=== PATIENT | male | born 2000 | race Caucasian/White ===

== ENCOUNTER 2022-08-07 14:23 | Emergency (ER) | payer OTHER ==
[~2022-08-07] VITALS: Ht 182.9 cm; Wt 77.1 kg
--- NOTE | 2022-08-07 15:20 | NUR ---
BIBS FOR NAUSEA AND VOMITING FOR 2 DAYS. A/O X 3, ABLE TO MAKE NEEDS KNOWN, TOLERATING WELL ON ROOM AIR.
--- NOTE | 2022-08-07 15:48 | NUR ---
BLOOD SAMPLES OBTAINED
[2022-08-07] MEDS ORDERED: IV NS 0.9% 1,000 ML BAG IV ONE (16:00)
[2022-08-07] MEDS ORDERED: ONDANSETRON HCL/PF 4 MG/2 ML VIAL IVP ONE (16:00)
[2022-08-07 16:19] LABS: BASOPHILS % (AUTO) 0.2 % (0.0-2.0); EOSINOPHILS % (AUTO) 0.2 % (0.0-6.0); HEMATOCRIT 45 % (39-51); HEMOGLOBIN 14.8 g/dL (13.5-17.5); LYMPHOCYTES # (AUTO) 1.1 K/uL (0.8-4.8); LYMPHOCYTES % (AUTO) 9.1 % (20.0-44.0); MEAN CORPUSCULAR HGB CONC 33 g/dl (31.0-36.0); MEAN CORPUSCULAR VOLUME 88 fL (80-96); MONOCYTES # (AUTO) 0.8 K/uL (0.1-1.30); MONOCYTES % (AUTO) 6.5 % (2.0-12.0); NEUTROPHILS # (AUTO) 10.6 K/uL (1.8-8.9); PLATELET COUNT (AUTO) 318 K/uL (150-450); RED BLOOD CELL COUNT(AUTO) 5.14 MIL/uL (4.5-6.0); WHITE BLOOD COUNT (AUTO) 12.6 K/uL (4.3-11.0)
[2022-08-07] MEDS ORDERED: ONDANSETRON HCL/PF 4 MG/2 ML VIAL ONE (16:29)
[2022-08-07 16:30] LABS: CALCIUM, SERUM 10.1 mg/dL (8.5-10.1); CREATININE 0.9 mg/dL (0.6-1.3)
[2022-08-07 16:37] LABS: ALBUMIN 4.5 g/dL (3.4-5.0); BILIRUBIN,DIRECT 0.3 mg/dL (0.0-0.2); BILIRUBIN,TOTAL 1.2 mg/dL (0.2-1.0); TOTAL PROTEIN, SERUM 8.3 g/dL (6.4-8.2)
--- NOTE | 2022-08-07 17:34 | NUR ---
NORMAL SALINE STARTED AT 1634, COMPLETED AT 1734
[2022-08-07] MEDS ORDERED: ONDA4TAB5 PO (18:37)
[2022-08-07 19:00] VITALS: BP 134/79
--- NOTE | 2022-08-07 19:00 | NUR ---
IV removed. Catheter intact and site benign. Pressure and 4x4 applied to site. No bleeding noted.Patient discharged to home in stable condition. Written and verbal after care instructions given. Patient verbalizes understanding of instruction.
== END 2022-08-07 19:01 | disposition home or self-care (01) ==
LOC: ER 14:26
DX: R11.2 Nausea with vomiting, unspecified (principal); Z79.899 Other long term (current) drug therapy
CPT/HCPCS: 99285; 96374; 76705; 96361; 85025; 80048; 83690; 80076; 83735; 36415; J2405; J7030

== ENCOUNTER 2022-08-30 14:43 | Inpatient (IN) | payer OTHER ==
[~2022-08-30] VITALS: Ht 182.9 cm; Wt 73.5 kg
[~2022-08-30 14:43] MED LIST: ONDA4TAB5 PO
[2022-08-30 15:22] LABS: BILIRUBIN,URINE 2+ (NEGATIVE); COLOR,URINE AMBER (YELLOW); LEUKOCYTE ESTERASE ,URINE NEGATIVE (NEGATIVE); NITRITE, URINE POSITIVE (NEGATIVE); PH,URINE 6.5 (5.0-8.0); PROTEIN,URINE 3+ mg/dl (NEGATIVE); UGLUCOSE NEGATIVE (NEGATIVE)
[2022-08-30 15:26] LABS: BASOPHILS % (AUTO) 0.3 % (0.0-2.0); EOSINOPHILS % (AUTO) 0.2 % (0.0-6.0); HEMATOCRIT 47 % (39-51); HEMOGLOBIN 15.4 g/dL (13.5-17.5); LYMPHOCYTES # (AUTO) 1.3 K/uL (0.8-4.8); LYMPHOCYTES % (AUTO) 13.5 % (20.0-44.0); MEAN CORPUSCULAR HGB CONC 33 g/dl (31.0-36.0); MEAN CORPUSCULAR VOLUME 87 fL (80-96); MONOCYTES # (AUTO) 0.5 K/uL (0.1-1.30); MONOCYTES % (AUTO) 5.1 % (2.0-12.0); NEUTROPHILS # (AUTO) 7.6 K/uL (1.8-8.9); NEUTROPHILS % (AUTO) 80.9 % (43.0-81.0); PLATELET COUNT (AUTO) 310 K/uL (150-450); RED BLOOD CELL COUNT(AUTO) 5.39 MIL/uL (4.5-6.0); WHITE BLOOD COUNT (AUTO) 9.4 K/uL (4.3-11.0)
[2022-08-30] MEDS ORDERED: ONDANSETRON HCL/PF - ER 4 MG/2 ML VIAL IV ONE ×2 (15:30→16:30)
[2022-08-30] MEDS ORDERED: IV NS 0.9% 1,000 ML IV ONE ×2 (15:30→19:30)
[2022-08-30] MEDS ORDERED: ONDANSETRON HCL/PF 4 MG/2 ML VIAL ONE ×2 (15:46→16:27)
[2022-08-30 15:48] LABS: ALBUMIN 4.4 g/dL (3.4-5.0); BILIRUBIN,DIRECT 0.3 mg/dL (0.0-0.2); BILIRUBIN,TOTAL 2.1 mg/dL (0.2-1.0); CALCIUM, SERUM 9.7 mg/dL (8.5-10.1); CREATININE 1.1 mg/dL (0.6-1.3); POTASSIUM 4.5 mmol/L (3.5-5.1); TOTAL PROTEIN, SERUM 8.2 g/dL (6.4-8.2)
[2022-08-30 15:52] LABS: BACTERIA,URINE 1+ /HPF (None Seen); FINE GRANULAR CASTS,URINE Moderate /LPF (None Seen); HYALINE CASTS, URINE Few /LPF (None Seen); SQUAMOUS EPITHELIAL CELL,UR None Seen /HPF (None Seen)
--- NOTE | 2022-08-30 15:52 | NUR ---
PT IN BED 6, A/OX 4 NO S/S OF DISTRESS OF ANYKIND. VITAL WNL. C/O: PAIN IN THE LEGS CURRENTLY 7/10 CAN GET UP TO 10/10. PT STATES DARK/ RED TINGED URINE. NO PAIN FROM FLANK OR BACK. Hx OF RABDOMYOLYSIS
[2022-08-30 15:53] LABS: MUCUS,URINE Moderate /LPF (None Seen)
[2022-08-30] MEDS ORDERED: KETOROLAC TROMETHAMINE 15 MG/ML VIAL ONE (16:27)
[2022-08-30] MEDS ORDERED: KETOROLAC TROMETHAMINE INJ 30 MG/ML VIAL IV ONE (16:30)
--- NOTE | 2022-08-30 17:45 | NUR ---
ROOM 113-1
--- NOTE | 2022-08-30 17:55 | NUR ---
Handoff report given to radha frederick.
--- NOTE | 2022-08-30 19:21 | NUR ---
rn note gave report to Bertha SUH for contuity of care
[2022-08-30] MEDS ORDERED: Z GUARD REMEDY 4 OZ OINT TP PRN (19:30)
[2022-08-30] MEDS ORDERED: ONDANSETRON HCL/PF 4 MG/2 ML VIAL IVP PRN (19:30)
[2022-08-30 19:40] VITALS: BP 124/74
--- NOTE | 2022-08-30 20:50 | NUR ---
MS general operations agent Note Admitted this patient from ED with ER staff via mj @ [id number] with diagnosis of rhabdomyolysis. Patient is awake, alert and oriented x 4. Patient is ambulatory. On room air; tolerating well. Breathing even and nonlabored. Not in any form of respiratory or cardiac distress. Denies any pain or discomfort. VS as follows: T 98.2, HR 94, RR 20, O2 Sat 98%, BP 124/74 mm hg. Able to make needs known. With IV access on right antecubital 20g; patent, intact and saline locked. Oriented to staff, room and unit. Body and skin assessment done; skin is warm to touch and intact. Fall and safety precautions initiated: call light and table within reach, side rails up x 2, bed in lowest locked position. Will continue to monitor throughout shift.
[2022-08-30] MEDS: HYDROCODONE/APAP 10/325MG TABLET PO PRN (23:33)
--- NOTE | 2022-08-30 23:33 | NUR ---
RN Note Patient complained of bilateral leg pain with 7/10 pain scale. PRN Ferguson 10/325 mg 1 tab given po as ordered. Kept comfortable in bed. Will continue to monitor and reassess patient.
[2022-08-31 04:00] VITALS: BP 116/60
[2022-08-31 05:51] LABS: BASOPHILS % (AUTO) 0.4 % (0.0-2.0); EOSINOPHILS % (AUTO) 3.4 % (0.0-6.0); HEMATOCRIT 42 % (39-51); HEMOGLOBIN 13.9 g/dL (13.5-17.5); LYMPHOCYTES # (AUTO) 2.7 K/uL (0.8-4.8); LYMPHOCYTES % (AUTO) 45.3 % (20.0-44.0); MEAN CORPUSCULAR HGB CONC 33 g/dl (31.0-36.0); MEAN CORPUSCULAR VOLUME 87 fL (80-96); MONOCYTES # (AUTO) 0.6 K/uL (0.1-1.30); MONOCYTES % (AUTO) 10.1 % (2.0-12.0); NEUTROPHILS # (AUTO) 2.4 K/uL (1.8-8.9); NEUTROPHILS % (AUTO) 40.8 % (43.0-81.0); PLATELET COUNT (AUTO) 262 K/uL (150-450); RED BLOOD CELL COUNT(AUTO) 4.85 MIL/uL (4.5-6.0)
[2022-08-31 06:18] LABS: ALBUMIN 3.4 g/dL (3.4-5.0); BILIRUBIN,TOTAL 1.5 mg/dL (0.2-1.0); CREATININE 0.9 mg/dL (0.6-1.3); MAGNESIUM 2.1 mg/dL (1.8-2.4); PHOSPHORUS 4.9 mg/dL (2.5-4.9); POTASSIUM 4.3 mmol/L (3.5-5.1); TOTAL PROTEIN, SERUM 6.5 g/dL (6.4-8.2)
--- NOTE | 2022-08-31 06:43 | NUR ---
MS RN Closing Note Patient in bed; awake, a/o x 4. Stable on room air. In no acute distress. No c/o pain or discomfort. With IV access on right antecubital 20g; patent, intact and saline locked. Due meds given as indicated. All needs met. Fall and safety precautions maintained. Endorsed to morning shift for continuity of care.
--- NOTE | 2022-08-31 07:15 | NUR ---
MS RN OPENING NOTE: RECEIVED PT IN BED AOX4. ABLE TO MAKE NEEDS KNOWN. ON RA. NO RESP DISTRESS NOTED. DENIES PAIN OR DISCOMFORT. PT WITH LAC 20G. PATENT AND INTACT. BED AT LOW AND LOCK POSITION FOR SAFETY. GIRLFRIEND AT BEDSIDE.
--- NOTE | 2022-08-31 08:45 | NUR ---
MS RN NOTE: RUBÉN MACKENZIE RD PROJECT MANAGER AT BEDSIDE
[2022-08-31] MEDS: LEVOCARNITINE 330 MG TABLET PO SCH (08:53)
[2022-08-31] MEDS ORDERED: IV NS 0.9% 1,000 ML IV ONE ×2 (09:00→10:30)
[2022-08-31] MEDS ORDERED: IV NS 0.9% 1,000 ML IV SCH (10:30)
[2022-08-31] MEDS: IV NS 0.9% 1,000 ML IV SCH ×4 (10:58→21:43)
[2022-08-31] MEDS: HYDROCODONE/APAP 10/325MG TABLET PO PRN (17:43)
--- NOTE | 2022-08-31 18:20 | NUR ---
MS RN CLOSING NOTE: PT IN BED AOX4. ABLE TO MAKE NEEDS KNOWN. ON RA. NO RESP DISTRESS NOTED. DENIES PAIN OR DISCOMFORT. PT WITH LAC 20G. ON IV NS AT 250ML/HR. PATENT AND INTACT. BED AT LOW AND LOCK POSITION FOR SAFETY. MOM AT BEDSIDE.
--- NOTE | 2022-08-31 19:30 | NUR ---
MS RN OPENING NOTE RECEIVED PATIENT IN BED, WITH HOB ELEVATED, ALERT AND ORIENTED X 4, WITH FAMILY MEMBER AT BEDSIDE. ABLE TO MAKE NEEDS KNOWN. AFEBRILE AND NOT IN ANY FORM OF ACUTE DISTRESS. BREATHING EVEN AND NON LABORED. WITH IV ACCESS ON LAC 20G RUNNING WITH NS AT 250ML/HR. SAFETY MEASURES IN PLACE. KEPT BED IN LOCKED AND IN LOW POSITION. SIDE RAILS UP X2. ADVISED TO USE THE CALL LIGHT WHEN IN NEED OF ASSISTANCE.
[2022-09-01] MEDS: IV NS 0.9% 1,000 ML IV SCH ×3 (01:44→09:47)
--- NOTE | 2022-09-01 06:23 | NUR ---
MS RN CLOSING NOTE PATIENT IN BED, SLEEPING. ALERT AND ORIENTED X4. ABLE TO MAKE NEEDS KNOWN. AFEBRILE AND NOT IN ANY FORM OF ACUTE DISTRESS. BREATHING EVEN AND NON LABORED. DENIES ANY PAIN OR DISCOMFORT THROUGHOUT THE SHIFT. WITH IV ACCESS ON LAC 20G RUNNING WITH NS AT 250ML/HR. MEDICATED ORDERED. SAFETY MEASURES IN PLACE. KEPT BED IN LOCKED AND IN LOW POSITION. SIDE RAILS UP X2. ADVISED TO USE THE CALL LIGHT WHEN IN NEED OF ASSISTANCE. ALL NURSING NEEDS ATTENDED. ENDORSED TO INCOMING SHIFT FOR CONTINUITY OF CARE.
[2022-09-01 06:26] LABS: BASOPHILS % (AUTO) 0.6 % (0.0-2.0); HEMATOCRIT 38 % (39-51); HEMOGLOBIN 12.9 g/dL (13.5-17.5); LYMPHOCYTES # (AUTO) 2.3 K/uL (0.8-4.8); LYMPHOCYTES % (AUTO) 38.5 % (20.0-44.0); MEAN CORPUSCULAR HGB CONC 34 g/dl (31.0-36.0); MEAN CORPUSCULAR VOLUME 86 fL (80-96); MONOCYTES # (AUTO) 0.7 K/uL (0.1-1.30); MONOCYTES % (AUTO) 11.7 % (2.0-12.0); NEUTROPHILS # (AUTO) 2.6 K/uL (1.8-8.9); NEUTROPHILS % (AUTO) 44.2 % (43.0-81.0); PLATELET COUNT (AUTO) 223 K/uL (150-450); RED BLOOD CELL COUNT(AUTO) 4.43 MIL/uL (4.5-6.0)
[2022-09-01 06:59] LABS: CALCIUM, SERUM 8.7 mg/dL (8.5-10.1); CREATININE 0.6 mg/dL (0.6-1.3); MAGNESIUM 1.7 mg/dL (1.8-2.4); PHOSPHORUS 3.8 mg/dL (2.5-4.9); POTASSIUM 4.1 mmol/L (3.5-5.1)
--- NOTE | 2022-09-01 07:10 | NUR ---
MS RN OPENING NOTE: RECEIVED PT IN BED SLEEPING. EASILY AROUSABLE TO VERBAL AND TACTILE STIMULI. NO S/S OF PAIN OR DISCOMFORT. ON RA WITH NO RESP DISTRESS NOTED. ON NS AT 250ML/HR TO LAC 20G. PATENT AND INTACT. CALL LIGHT WITHIN REACH. ABLE TO AMBULATE. BED KEPT LOW AND LOCK POSITION FOR SAFETY.
[2022-09-01] MEDS: LEVOCARNITINE 330 MG TABLET PO SCH (08:31)
[2022-09-01] MEDS: MAGNESIUM OXIDE 400 MG TABLET PO ONE ×2 (09:48→09:51)
[2022-09-01 12:07] LABS: *ANA ANTI-CENTROMERE B AB <0.2 AI (0.0-0.9); *ANA ANTI-DNA(DS) AB, QN <1 IU/mL (0-9); *ANA ANTI-JO-1 <0.2 AI (0.0-0.9); *ANA ANTICHROMATIN ANTIBODY <0.2 AI (0.0-0.9); *ANA RNP ANTIBODIES <0.2 AI (0.0-0.9); *ANA SJOGREN'S ANTI-SS-A <0.2 AI (0.0-0.9); *ANA SJOGREN'S ANTI-SS-B <0.2 AI (0.0-0.9); *ANAANTI-SCLERODERMA-70 AB <0.2 AI (0.0-0.9); *ANASMITH AB <0.2 AI (0.0-0.9)
[2022-09-01] MEDS ORDERED: IV NS 0.9% 1,000 ML IV PRN (15:00)
[2022-09-01] MEDS: HYDROCODONE/APAP 10/325MG TABLET PO PRN (15:57)
--- NOTE | 2022-09-01 18:10 | NUR ---
MS RN CLOSING NOTE: RECEIVED PATIENT IN BED, WITH HOB ELEVATED, ALERT AND ORIENTED X 4, WITH GIRLFRIEND AT BED SIDE. ABLE TO MAKE NEEDS KNOWN. AFEBRILE AND NOT IN ANY FORM OF ACUTE DISTRESS. BREATHING EVEN AND NON LABORED. WITH IV ACCESS ON RAC 20G RUNNING WITH NS AT 75ML/HR. SAFETY MEASURES IN PLACE. KEPT BED IN LOCKED AND IN LOW POSITION. SIDE RAILS UP X2. CALL LIGHT WITHIN REACH.
--- NOTE | 2022-09-01 19:30 | NUR ---
SILK SCREEN PRINTING RACKER OPENING NOTE RECEIVED PATIENT IN BED, WITH HOB ELEVATED, ALERT AND ORIENTED X 4, WITH FAMILY MEMBER AT BEDSIDE. ABLE TO MAKE NEEDS KNOWN. AFEBRILE AND NOT IN ANY FORM OF ACUTE DISTRESS. BREATHING EVEN AND NON LABORED. WITH IV ACCESS ON LAC 20G RUNNING WITH NS AT 250ML/HR. SAFETY MEASURES IN PLACE. KEPT BED IN LOCKED AND IN LOW POSITION. SIDE RAILS UP X2. ADVISED TO USE THE CALL LIGHT WHEN IN NEED OF ASSISTANCE, WILL CONTINUE TO MONITOR
--- NOTE | 2022-09-02 06:01 | NUR ---
COMPENSATION/BENEFITS SPECIALIST closing note Pt resting in bed, asleep, A&Ox4, able to make needs known, breathing even and unlabored, on RA, skin warm and dry to touch, declined any pain, RAC 20G C/D/I, NS 75cc/ hr infusing well, pt is independent with bed mobility, all due meds given per MD orders, all basic needs met and anticipated, safety measures in place, call light with in reach
[2022-09-02 06:57] LABS: BASOPHILS % (AUTO) 0.5 % (0.0-2.0); HEMATOCRIT 40 % (39-51); HEMOGLOBIN 13.1 g/dL (13.5-17.5); LYMPHOCYTES % (AUTO) 37.5 % (20.0-44.0); MEAN CORPUSCULAR HGB CONC 33 g/dl (31.0-36.0); MEAN CORPUSCULAR VOLUME 87 fL (80-96); MONOCYTES # (AUTO) 0.6 K/uL (0.1-1.30); MONOCYTES % (AUTO) 10.9 % (2.0-12.0); NEUTROPHILS # (AUTO) 2.4 K/uL (1.8-8.9); NEUTROPHILS % (AUTO) 45.1 % (43.0-81.0); PLATELET COUNT (AUTO) 243 K/uL (150-450); RED BLOOD CELL COUNT(AUTO) 4.58 MIL/uL (4.5-6.0); WHITE BLOOD COUNT (AUTO) 5.2 K/uL (4.3-11.0)
[2022-09-02 07:04] LABS: CREATININE 0.6 mg/dL (0.6-1.3); MAGNESIUM 1.9 mg/dL (1.8-2.4); PHOSPHORUS 4.6 mg/dL (2.5-4.9); POTASSIUM 4.2 mmol/L (3.5-5.1)
--- NOTE | 2022-09-02 07:30 | NUR ---
OPENING NOTE RECEIVED PATIENT IN BED, WITH HOB ELEVATED, ALERT AND ORIENTED X 4. ABLE TO MAKE NEEDS KNOWN. AFEBRILE AND NOT IN ANY FORM OF ACUTE DISTRESS. BREATHING EVEN AND NON LABORED. SAFETY MEASURES IN PLACE. KEPT BED IN LOCKED AND IN LOW POSITION. SIDE RAILS UP X2. ADVISED TO USE THE CALL LIGHT WHEN IN NEED OF ASSISTANCE, WILL CONTINUE TO MONITOR
[2022-09-02 08:00] VITALS: BP 117/69
[2022-09-02] MEDS: LEVOCARNITINE 330 MG TABLET PO SCH (08:25)
--- NOTE | 2022-09-02 11:15 | NUR ---
PATIENT DISCHARGE HOME IN STABLE CONDITION. GIRLFRIEND STOCK CAR DRIVER THE PATIENT. DISCHARGED PLAN GIVEN TO THE PATIENT.
== END 2022-09-02 12:48 | disposition home or self-care (01) | DRG 346 ==
LOC: ER 14:44 → TELE1 18:54 → MEDSG1 21:49
PROVIDERS: ADMIT Nurse Practitioner Acute Care; ATTEND Nurse Practitioner Acute Care
DX: M33.22 Polymyositis with myopathy (principal); E80.6 Other disorders of bilirubin metabolism
CPT/HCPCS: 36415; 80048-TC; 80053-TC; 80061-TC; 80076-TC; 81001; 82085; 82550-TC; 82553; 83540-TC; 83690-TC; 83735-TC; 84100-TC; 85025-TC; 85652-TC; 86140-TC; 86225; 86235; 87081-TC; 87086-TC; A4223; G0378; G0480; J1885; J2405; J7030